=== PATIENT | female | born 1975 | race Caucasian/White ===

== ENCOUNTER → 2025-02-14 | Day surgery (SDC) | payer OTHER | END | disposition home or self-care (01) | LOC: FMAMMOTONE 08:59 | PROVIDERS: ATTEND Obstetrics & Gynecology | PROC: 0H9T3ZX Drainage of Right Breast, Percutaneous Approach, Diagnostic (ICD-10-PCS; principal; 2025-02-14) | DX: N60.11 Diffuse cystic mastopathy of right breast (principal) | CPT/HCPCS: 19081; 76098-TC-FY; 77065-TC; 88305-TC; G0279-TC ==